=== PATIENT | female | born 2000 | race Two or more races ===

== ENCOUNTER 2024-06-30 12:17 | Emergency (ER) | payer OTHER ==
[~2024-06-30] VITALS: Ht 154.9 cm; Wt 75.7 kg
[2024-06-30] MEDS ORDERED: CEFTRIAXONE SODIUM 1,000 MG VIAL IV ONE (13:15)
[2024-06-30] MEDS ORDERED: KETOROLAC TROMETHAMINE 30 MG VIAL IV ONE (13:15)
[2024-06-30] MEDS ORDERED: KETOROLAC TROMETHAMINE 30 MG VIAL ONE (13:30)
[2024-06-30] MEDS ORDERED: CEFTRIAXONE SODIUM 1,000 MG VIAL ONE (13:31)
== END 2024-06-30 14:03 | disposition home or self-care (01) ==
LOC: ER 12:17
DX: O26.892 Other specified pregnancy related conditions, second trimester (principal); N75.8 Other diseases of Bartholin's gland; Z3A.15 15 weeks gestation of pregnancy

== ENCOUNTER 2024-12-11 13:12 | Inpatient (IN) | payer OTHER ==
[~2024-12-11] VITALS: Ht 157.5 cm; Wt 3.6 kg
[2024-12-19 12:02] LABS: BASO % 0.7 % (0.1-1.2); EOS # 0.06 (0.04-0.54); EOS % 0.4 % (0.7-7.0); LYMPH # 2.30 (1.18-3.74); LYMPH % 16.7 % (19.3-53.1); MEAN PLATELET VOLUME 10.10 fl (9.4-12.4); MONO # 0.63 (0.24-0.82); MONO % 4.6 % (4.7-12.5); NEUT # 10.12 (1.56-6.13); NEUT % 73.6 % (34.0-71.1); RED CELL DISTRIBUTION WIDTH 15.8 % (11.6-14.4)
[2024-12-19 12:31] LABS: INR 0.94
[2024-12-19 12:55] LABS: URINE APPEARANCE Cloudy; URINE BILIRRUBIN Negative (NEGATIVE); URINE BLOOD Negative; URINE COLOR Yellow; URINE GLUCOSE Negative (NEGATIVE); URINE KETONE Negative (NEGATIVE); URINE LEUKOCYTE Trace; URINE NITRATE Negative; URINE PROTEIN Trace (NEGATIVE); URINE UROBILINOGEN 1.0 E.U./dl
[2024-12-19 12:56] LABS: URINE BACTERIA 4342.7 uL (0.0-1933); URINE EPITHELIAL CELLS 71.8 uL (0.0-38.8); URINE RBC 3.0 uL (0.0-20.8); URINE WBC 42.9 uL (0.0-23.2)
[2024-12-19 13:07] LABS: ALT/SGPT 11.0 U/L (12-78); AST/SGOT 15.0 U/L (15-37); BILIRUBIN TOTAL 0.3 mg/dL (0.3-1.2); BUN CREA RATIO 13.0 (7.0-25.0); CREATININE SERUM 0.75 mg/dL (0.55-1.02); GFR 94.15; GLOBULINA 3.6 G/DL (2.4-3.5); GLUCOSE FASTING 124.0 mg/dL (65-100); OSMOLALITY SERUM 280.0 MOSM/KG (275-295)
[2024-12-19 13:25] LABS: URINE CAST 0.00 uL (0.0-1.40); URINE CRYSTALS FEW /HPF
[2024-12-20 06:05] VITALS: BP 111/76
[2024-12-20] MEDS ORDERED: PRENATA CHEWAB1 EACH PO (06:05)
[2024-12-20] MEDS ORDERED: MORPHINE SULFATE 4 MG/ML CARTRIDGE IV PRN (10:15)
[2024-12-20] MEDS ORDERED: ERYTHROMYCIN BASE OPHT 1GM EACH TUBE OP ONE (10:15)
[2024-12-20] MEDS ORDERED: RINGERS SOLUTION,LACTATED 1,000 ML IV SCH (10:15)
[2024-12-20] MEDS ORDERED: OXYTOCIN 20 UNITS/1000ML RL PIGGYBAG IV ONE (10:15)
[2024-12-20] MEDS ORDERED: CEFAZOLIN SODIUM 1,000 MG VIAL IV ONE (10:15)
[2024-12-20] MEDS ORDERED: CEFAZOLIN SODIUM 1,000 MG VIAL IV SCH (14:00)
[2024-12-20 14:10] VITALS: BP 111/66
[2024-12-20 16:00] VITALS: BP 107/69
[2024-12-21 00:46] VITALS: BP 102/65
[2024-12-21 01:07] LABS: BASO % 0.5 % (0.1-1.2); EOS # 0.03 (0.04-0.54); EOS % 0.2 % (0.7-7.0); LYMPH # 1.61 (1.18-3.74); LYMPH % 12.6 % (19.3-53.1); MEAN PLATELET VOLUME 9.90 fl (9.4-12.4); MONO # 0.94 (0.24-0.82); MONO % 7.4 % (4.7-12.5); NEUT # 9.87 (1.56-6.13); NEUT % 77.6 % (34.0-71.1); RED CELL DISTRIBUTION WIDTH 15.6 % (11.6-14.4)
[2024-12-21] MEDS ORDERED: ACETAMINOPHEN 325 MG TABLET PO PRN (09:15)
[2024-12-21] MEDS ORDERED: OxyCODONE HCL 5 MG TABLET (ROXICODONE) PO PRN (09:15)
[2024-12-21 10:01] VITALS: BP 103/68
[2024-12-21 17:30] VITALS: BP 100/68
[2024-12-22] VITALS: BP 118/82
[2024-12-22 09:02] VITALS: BP 114/75
[2024-12-22 16:39] VITALS: BP 107/69
[2024-12-23 00:12] VITALS: BP 118/75
[2024-12-23] MEDS ORDERED: IBUPROFEN800 MG PO (06:57)
[2024-12-23 08:22] VITALS: BP 123/78
== END 2024-12-23 11:02 | disposition home or self-care (01) | DRG 788 ==
LOC: LDR 12-18 13:15 → OB/GYN 12-20 10:00 → O/R 12-20 10:00 → OB/GYN 12-20 14:25
PROVIDERS: ADMIT Specialist; ATTEND Specialist
PROC: 4A1HXCZ Monitoring of Products of Conception, Cardiac Rate, External Approach (ICD-10-PCS; 2024-12-20)
PROC: 10D00Z1 Extraction of Products of Conception, Low, Open Approach (ICD-10-PCS; principal; 2024-12-20 08:45)
DX: O33.5XX0 Maternal care for disproportion due to unusually large fetus, not applicable or unspecified (principal); O36.63X0 Maternal care for excessive fetal growth, third trimester, not applicable or unspecified; O33.8 Maternal care for disproportion of other origin; Z3A.40 40 weeks gestation of pregnancy; Z37.0 Single live birth